=== PATIENT | female | born 1990 | race Caucasian/White ===

== ENCOUNTER 2021-09-11 06:59 | Day surgery (SDC) | payer MEDICAID ==
[~2021-09-11] VITALS: Ht 160 cm; Wt 63.5 kg
[2021-09-11] MEDS ORDERED: MIDAZOLAM HCL 5 MG/5 ML VIAL ONE ×2 (07:29→10:27)
[2021-09-11] MEDS ORDERED: MEPERIDINE 100 MG INJ. 100 MG/ML VIAL ONE (07:29)
[2021-09-11] MEDS ORDERED: SIMETHICONE 40 MG/0.6 ML ML ONE (07:29)
[2021-09-11 07:48] LABS: HCG,QUAL RESULT NEGATIVE (NEGATIVE)
[2021-09-11] MEDS ORDERED: DIPHENHYDRAMINE INJ 50 MG/ML VIAL ONE (10:23)
[2021-09-11 13:08] VITALS: BP_SYST 143
== END 2021-09-11 11:20 | disposition home or self-care (01) ==
LOC: SDS 06:59 → SMU 07:01 → SDS 11:20
PROVIDERS: ATTEND Internal Medicine Gastroenterology
DX: K92.1 Melena (principal); D12.0 Benign neoplasm of cecum; K64.9 Unspecified hemorrhoids; Z80.0 Family history of malignant neoplasm of digestive organs; Z79.899 Other long term (current) drug therapy; Z20.822 Contact with and (suspected) exposure to COVID-19
CPT/HCPCS: 36415; 45380; 84703; 87426; 88305; 99152; 99153; G0378; J1200; J2175; J2250